=== PATIENT | female | born 1995 | race Hispanic/Latino ===

== ENCOUNTER 2024-01-04 13:23 | Emergency (ER) | payer OTHER ==
[~2024-01-04] VITALS: Ht 157.5 cm; Wt 95.3 kg
[2024-01-04 14:29] LABS: APPEARANCE,URINE CLEAR (CLEAR); BILIRUBIN,URINE NEGATIVE (NEGATIVE); COLOR,URINE LIGHT-YELLOW (YELLOW); GLUCOSE, URINE (UA) NEGATIVE (NEGATIVE); KETONES,URINE NEGATIVE (NEGATIVE); LEUKOCYTE ESTERASE ,URINE NEGATIVE Leu/uL (NEGATIVE); NITRATE,URINE NEGATIVE (NEGATIVE); OCCULT BLOOD,URINE LARGE (NEGATIVE); PH,URINE 7.5 (5.0-8.0); PROTEIN,URINE 10 mg/dL (NEGATIVE); UROBILINOGEN,URINE 0.2 mg/dL (0.2-1.0)
[2024-01-04 14:30] LABS: ADD UA MICROSCOPIC YES
[2024-01-04 14:31] LABS: HCG,QUALITATIVE URINE NEGATIVE (NEGATIVE)
[2024-01-04 14:36] LABS: MUCUS,URINE RARE LPF (None Seen); RBC,URINE TNTC /HPF (0-1); SQUAMOUS EPITHELIAL CELL,UR RARE /HPF (0-2)
[2024-01-04 14:48] LABS: BASOPHILS # (AUTO) 0.04 K/uL (0.00-0.20); BASOPHILS % (AUTO) 0.3 % (0.0-5.0); EOSINOPHILS # (AUTO) 0.16 K/uL (0.00-0.70); EOSINOPHILS % (AUTO) 1.2 % (0.0-8.0); HEMATOCRIT 32.4 % (36-48); IMMATURE GRANULOCYTE ABSOLUTE 0.05 K/uL (0-1); LYMPHOCYTES # (AUTO) 1.9 K/uL (1.0-4.8); LYMPHOCYTES % (AUTO) 14.3 % (21.0-51.0); MEAN CORPUSCULAR HEMOGLOBIN 27.9 pg (27.0-33.0); MEAN CORPUSCULAR HGB CONC 33.6 g/dL (32.0-36.0); MEAN CORPUSCULAR VOLUME 83.1 fL (79-99); MONOCYTES # (AUTO) 0.6 K/uL (0.1-1.0); MONOCYTES % (AUTO) 4.6 % (3.0-13.0); NEUTROPHILS # (AUTO) 10.7 K/uL (1.8-7.7); NEUTROPHILS % (AUTO) 79.2 % (40.0-77.0); PLATELET COUNT (AUTO) 398 K/uL (130-400); RED CELL DISTRIBUTION WIDTH 13.1 % (11.0-15.5); WHITE BLOOD COUNT (AUTO) 13.5 K/uL (4.8-10.8)
[2024-01-04] MEDS: METOCLOPRAMIDE 10 MG/2 ML VIAL IVP ONE (14:49)
[2024-01-04] MEDS: LIDOCAINE HCL 2% VISCOUS 15 ML UDCUP PO ONE (14:49)
[2024-01-04] MEDS: MAG/ALUM/SIMETH 30 ML UDCUP PO ONE (14:49)
[2024-01-04 14:50] LABS: CREATININE 0.7 mg/dL (0.5-1.0); POTASSIUM 3.6 mmol/L (3.5-5.1)
[2024-01-04 14:55] LABS: ALBUMIN 3.2 g/dL (3.5-5.0); BILIRUBIN,TOTAL 0.2 mg/dL (0.2-1.0); TOTAL PROTEIN, SERUM 7.4 g/dL (6.0-8.3)
[2024-01-04 16:26] VITALS: BP 137/77; PULSE 87; RESP 17; O2SAT 99
[2024-01-04] MEDS ORDERED: PHEN-847 PO (16:43)
[2024-01-04] MEDS ORDERED: CEPH500T PO (16:43)
[2024-01-04] MEDS ORDERED: FAMO-136 PO (16:43)
[2024-01-04] MEDS ORDERED: METO-296 PO (16:43)
[2024-01-04] MEDS: PHENAZOPYRIDINE HCL 200 MG TABLET PO ONE (16:44)
[2024-01-04] MEDS: CEFTRIAXONE 2GM VIAL IVPB ONE (16:44)
== END 2024-01-04 17:00 | disposition home or self-care (01) ==
LOC: EDH 13:23
DX: N39.0 Urinary tract infection, site not specified (principal); K29.70 Gastritis, unspecified, without bleeding; Z90.49 Acquired absence of other specified parts of digestive tract
CPT/HCPCS: 99284; 96365; 96375; 80053; 83690; 85025; 81001; 81025; 36415; J0696; J2765